=== PATIENT | female | born 1940 | race Caucasian/White ===

== ENCOUNTER 2021-08-16 08:54 | Emergency (ER) | payer OTHER ==
[~2021-08-16 08:54] MED LIST: ACIDOPHILUS1 EAC4 PO; ANTIVERT12.5 MG PO; ASPIR 8181 MG PO; BETIMOL15 ML EYEBOTH; BETIMOL15 ML OU; CARDIZEM CD240 MG PO; CEFDINIR300 MG PO; CYCLOBENZAPRINE10 MG PO; ELIQUIS5 MG PO; FLEXERIL10 MG PO; FOLIC ACID0.4 MG PO; ISOSORBIDE MONO60 MG PO; LASIX20 MG PO; LIPITOR40 MG PO; LOPRESSOR25 MG PO; LOSARTAN-HCTZ1 EACH PO; LUMIGAN5 ML OU; MECLIZINE 25MG25 MG PO; METFORMIN HCL500 MG PO; NEURONTIN600 MG PO; NORVASC5 MG PO; OZEMPIC0.25 MG/0. PO; POTASSIUM99 M3 PO; PRAVASTATIN SOD10 MG PO; PREGABALIN150 MG PO; PREVACID30 M1 PO; SYNTHROID25 MCG PO; TIMOPTIC OU; TOPROL XL50 MG PO; TYLENOL #31 EACH PO; VITAMIN D-32000 UNI1 PO; XALATAN2.5 ML OU; ZESTRIL5 MG PO; ZETIA10 MG PO
[2021-08-16 11:12] LABS: BASOPHIL 0.8 % (0-2); EOSINOPHIL 2.1 % (0-7); HCT 40.4 % (37.0-47.0); HGB 13.1 g/dl (12.5-16.0); LYMPHOCYTE 32.3 % (15-48); MCH 29.2 pg (25.0-31.0); MCHC 32.4 g/dL (32.0-36.0); MPV 10.4 fL (6.0-9.5); NEUTROPHIL 54.3 % (41-80); NRBC 0; PLT 292 K/uL (150-400); RBC 4.49 M/uL (4.20-5.40); RDW 14.9 % (11.5-14.0); WBC 7.7 K/uL (4.0-10.5)
[2021-08-16 11:15] LABS: INR 1.31 (0.9-1.2); PROTHROMBIN TIME 15.6 SECONDS (11.8-13.4)
[2021-08-16 11:16] LABS: PTT 37.7 SECONDS (24.4-34.7)
[2021-08-16 11:26] LABS: ALBUMIN 3.3 g/dL (3.4-5.0); BILIRUBIN - TOTAL 0.4 mg/dL (0.2-1.0); BUN/CREAT RATIO (CALC) 19.1 RATIO; CREATININE 0.89 mg/dL (0.51-0.95); FT4 (FREE T4) 1.2 ng/dL (0.76-1.46); GLOBULIN (CALCULATION) 4.1 g/dL; MAGNESIUM 2.3 mg/dL (1.8-2.4); POTASSIUM 4.4 mmol/L (3.5-5.1); TOTAL PROTEIN 7.4 g/dL (6.4-8.2)
== END 2021-08-16 16:20 | disposition home or self-care (01) ==
LOC: FER 08:54
PROVIDERS: Emergency Medicine
DX: I48.91 Unspecified atrial fibrillation (principal); Z88.5 Allergy status to narcotic agent
CPT/HCPCS: 36415; 71045; 80053; 83735; 83880; 84439; 84443; 84484; 85025; 85610; 85730; 93005